=== PATIENT | female | born 1950 | race African-American/Black ===

== ENCOUNTER 2016-07-09 00:17 | Emergency (ER) | payer OTHER ==
--- NOTE | 2016-07-09 00:43 | PDOC ---
History of Present Illness - General Stated Complaint: VARICOSE VEIN RUPTURED ON RIGHT UPPER THIGH Time Seen by Provider: 07/09/16 00:31 History Source: Patient - History of Present Illness Initial Comments: 07/09/16 05:26 diagnosed with skin sarcoid x 1 year. on corticosteroids. presents with bleeding from varicose vein versus sarcoid lesion, resolved Timing/Duration: 1 hour Severity: mild Modifying Factors: worse with: cold therapy, eating, immobilization, medication Associated Symptoms: denies: chest pain, fever/chills, headaches Past History - Past Medical History Allergies/Adverse Reactions: Allergies Allergy/AdvReac Type Severity Reaction Status Date / Time No Known Drug Allergies Allergy Verified 07/09/16 00:19 Home Medications: Ambulatory Orders Atenolol [Tenormin -] 100 mg PO DAILY 11/28/15 Chlorthalidone 25 mg PO DAILY 11/28/15 Cholecalciferol (Vitamin D3) [Vitamin D3] 5,000 unit PO DAILY 11/28/15 Cyanocobalamin [Vitamin B12 -] 1,000 mcg PO DAILY 11/28/15 Furosemide 20 mg PO PRN PRN 11/28/15 Lovastatin 20 mg PO DAILY 11/28/15 Metformin HCl 500 mg PO BID 11/28/15 Multivitamin with Minerals [Icaps Plus] 1 each PO DAILY 11/28/15 Naproxen Sodium [Aleve] 440 mg PO QID 11/28/15 Potassium Chloride 10 meq PO PRN 11/28/15 Aspirin [ASA -] 2 mg PO DAILY 11/30/15 Diabetes: Yes HTN: Yes Hypercholesterolemia: Yes Thyroid Disease: No - Surgical History Orthopedic Surgery: Yes (BILATERAL KNEE REPLACEMENT) - Psycho/Social/Smoking Cessation Hx Smoking History: Former smoker Have you smoked in the past 12 months: No If you are a former smoker, when did you quit?: 30YRS AGO Hx Alcohol Use: No Drug/Substance Use Hx: No Substance Use Type: None Review of Systems - Review of Systems All Other Systems: Reviewed and Negative *Physical Exam - Physical Exam Comments: 07/09/16 05:28 GENERAL: [The patient is awake, alert, and fully oriented, and in no apparent distress.] HEAD: [Normal with no signs of trauma.] EYES: [Pupils equal, round and reactive to light, extraocular movements intact, sclera anicteric, conjunctiva are normal.] ENT: [TMs normal, nares patent, oropharynx clear without exudates. Moist mucous membranes.] NECK: [Normal range of motion, supple without lymphadenopathy, JVD, or masses.] LUNGS: [Breath sounds equal, clear to auscultation bilaterally. No wheezes, and no crackles.] HEART: [Regular rate and rhythm, normal S1 and S2 without murmur, rub or gallop.] ABDOMEN: [Soft, nontender, normoactive bowel sounds. No guarding, no rebound. No masses appreciated.] EXTREMITIES: [Normal range of motion, no edema. No clubbing or cyanosis. No cords, erythema, or tenderness.] NEUROLOGICAL: [Cranial nerves II through XII grossly intact. Normal speech, normal gait.] PSYCH: [Normal mood, normal affect.] SKIN: [papular/ nodular lesions throughout torso and extremities, many with slight ulceration. dried blood on her body but im unsure which of these was the culprit bleeder. no active bleeding.] Medical Decision Making - Medical Decision Making 07/09/16 05:29 bleeding resolved. inctructed re: one finger bleeding control with direct pressure derm fu *DC/Admit/Observation/Transfer Diagnosis at time of Disposition: Varicose vein of leg - Discharge Dispostion Disposition: HOME Condition at time of disposition: Good - Referrals Referrals: Edu Weir MD [Primary Care Provider] - Svetlana Lewis [Staff Physician] - - Patient Instructions Printed Discharge Instructions: DI for Varicose Veins
[2016-07-09 00:44] VITALS: BP 141/85; PULSE 84; TEMP 97.5; BMI 40.7
== END 2016-07-09 00:44 | disposition home or self-care (01) ==
LOC: FER 00:17
DX: I83.891 Varicose veins of right lower extremity with other complications (principal); I10 Essential (primary) hypertension; E78.00 Pure hypercholesterolemia, unspecified; E11.9 Type 2 diabetes mellitus without complications; Z96.653 Presence of artificial knee joint, bilateral; Z87.891 Personal history of nicotine dependence; Z79.82 Long term (current) use of aspirin; Z79.84 Long term (current) use of oral hypoglycemic drugs
CPT/HCPCS: 99281-25

== ENCOUNTER 2017-01-31 09:20 | Emergency (ER) | payer OTHER ==
[2017-01-31 09:29] VITALS: BP 166/93; PULSE 72; TEMP 97.9; BMI 40.7
--- NOTE | 2017-01-31 09:36 | PDOC ---
History of Present Illness - General Chief Complaint: Rash Stated Complaint: WORSENING ITCHY, BURNING RASH Time Seen by Provider: 01/31/17 09:22 History Source: Patient Exam Limitations: No Limitations - History of Present Illness Initial Comments: 01/31/17 09:29 66 y/o female with hx of diabetes presents with chronic lesions over entire body. Patient currently sees a [employer] for photo therapy, had an appointment with her today, but came here instead. has been scratching at lesions. Using a cream that is not working. No drainage, fever or chills. No SOB. Patient has not tried Benadryl at this point. Severity: Yes: mild Location: reports: generalized Modifying Factors: improves with: scratching Associated Symptoms: reports: change in skin texture. denies: hives Past History - Past Medical History Allergies/Adverse Reactions: Allergies Allergy/AdvReac Type Severity Reaction Status Date / Time No Known Drug Allergies Allergy Verified 01/31/17 09:22 Home Medications: Ambulatory Orders Atenolol [Tenormin -] 100 mg PO DAILY 11/28/15 Chlorthalidone 25 mg PO DAILY 11/28/15 Cholecalciferol (Vitamin D3) [Vitamin D3] 5,000 unit PO DAILY 11/28/15 Cyanocobalamin [Vitamin B12 -] 1,000 mcg PO DAILY 11/28/15 Furosemide 20 mg PO PRN PRN 11/28/15 Lovastatin 40 mg PO DAILY 11/28/15 Metformin HCl 500 mg PO BID 11/28/15 Multivitamin with Minerals [Icaps Plus] 1 each PO DAILY 11/28/15 Potassium Chloride 10 meq PO PRN 11/28/15 Aspirin [ASA -] 2 mg PO DAILY 11/30/15 Diabetes: Yes HTN: Yes Hypercholesterolemia: Yes Thyroid Disease: No - Surgical History Orthopedic Surgery: Yes (BILATERAL KNEE REPLACEMENT) - Suicide/Smoking/Psychosocial Hx Smoking History: Former smoker Have you smoked in the past 12 months: No If you are a former smoker, when did you quit?: 30YRS AGO Information on smoking cessation initiated: No Hx Alcohol Use: No Drug/Substance Use Hx: No Substance Use Type: None Review of Systems - Review of Systems Able to Perform ROS?: Yes Is the patient limited Czech proficient: No Constitutional: No: Chills, Fever Respiratory: No: Cough, Shortness of Breath Cardiac (ROS): No: Chest Pain, Palpitations ABD/GI: No: Nausea, Vomiting Musculoskeletal: No: Joint Pain, Muscle Pain Integumentary: Yes: Lesions, Pruritus All Other Systems: Reviewed and Negative *Physical Exam - Vital Signs Last Vital Signs Temp Pulse Resp BP Pulse Ox 97.9 F 72 18 166/93 100 01/31/17 09:20 01/31/17 09:20 01/31/17 09:20 01/31/17 09:20 01/31/17 09:20 - Physical Exam General Appearance: Yes: Nourished, Appropriately Dressed. No: Apparent Distress HEENT: positive: EOMI, INOCENCIA, Normal ENT Inspection Neck: positive: Trachea midline, Normal Thyroid, Supple. negative: Tender, Rigid Respiratory/Chest: positive: Lungs Clear, Normal Breath Sounds. negative: Chest Tender, Respiratory Distress Cardiovascular: positive: Regular Rhythm, Regular Rate, S1, S2. negative: Edema , JVD, Murmur Vascular Pulses: Femoral (R): 4+, Femoral (L): 4+, Carotid (R): 4+, Carotid (L) : 4+, Dorsalis-Pedis (R): 4+, Doralis-Pedis (L): 4+ Gastrointestinal/Abdominal: positive: Normal Bowel Sounds, Soft. negative: Tender, Organomegaly, Pulsatile Mass Lymphatic: negative: Adenopathy, Tenderness, Other Musculoskeletal: positive: Normal Inspection. negative: CVA Tenderness Extremity: positive: Normal Capillary Refill, Normal Inspection, Normal Range of Motion Integumentary: positive: Normal Color, Dry, Warm, Rash (diffuse nodular rash with some excoriations from scratching, no bleeding, skin discoloration due to nodules noted). negative: Erythema, Hives Neurologic: positive: stock analyst II-XII NML intact, Fully Oriented, Alert, Normal Mood/ Affect, Normal Response, Motor Strength 5/5 Progress Note - Progress Note Progress Note: Pt with pruritis, need to avoid steroids due to Diabetes Will start Benadryl, calamine lotion Follow up with [employer] Chronic skin nodules due to diabetes *DC/Admit/Observation/Transfer Diagnosis at time of Disposition: Chronic pruritus, Neurodermatitis - Discharge Dispostion Disposition: HOME Condition at time of disposition: Stable Admit: No - Patient Instructions Printed Discharge Instructions: DI for Itching Additional Instructions: Continue steroid cream Oat meal baths Calamine lotion Benadryl 25 mg every 6 hr as needed Follow up with [employer]
== END 2017-01-31 09:50 | disposition home or self-care (01) ==
LOC: FER 09:20
DX: L28.0 Lichen simplex chronicus (principal); L29.8 Other pruritus; E11.9 Type 2 diabetes mellitus without complications; I10 Essential (primary) hypertension; E78.00 Pure hypercholesterolemia, unspecified; Z87.891 Personal history of nicotine dependence
CPT/HCPCS: 99282-25